=== PATIENT | female | born 1950 | race Caucasian/White ===

== ENCOUNTER → 2018-03-10 | Day surgery (SDC) | payer MEDICARE ==
[~2018-03-10] VITALS: Ht 172.7 cm; Wt 104.3 kg
[~2018-03-10] MED LIST: ESCITALOPRAM OX20 MG PO; HYDROCHLOROTHIA25 MG PO; IBU800 M2 PO; LIPITOR40 MG PO; LISINOPRIL20 MG PO; MOTRIN800 MG PO; MULTIPLE VITAM1 EAC1 PO; OMEPRAZOLE40 MG PO; PREVACID30 MG PO; TOLTERODINE TART4 M1 PO; VITAMIN D31000 UNI1 PO
--- NOTE | ~2018-03-10 | O ---
[place], [place] OPERATIVE NOTE NAME: ALISIA CAMPOS UNIT #: [id number] ROOM: DOCTOR: RIGOBERTO MOISE MD BIRTHDATE: [birth year] DOS: 03/10/2018 PREOPERATIVE DIAGNOSIS: Cataract, right eye. POSTOPERATIVE DIAGNOSIS: Cataract, right eye. OPERATION: Extracapsular cataract extraction by phacoemulsification with posterior chamber intraocular lens implantation, right eye. ANESTHESIA: Monitored standby. OPERATIVE FINDINGS AND PROCEDURE: 2% Xylocaine topical anesthetic gel was applied to the eye in the preop area. The patient was taken to the operating room and prepped and draped in the standard fashion for sterile intraocular surgery. A time out procedure was performed verifying correct patient, correct site and corrects lens with Olga Moise M.D. The operating microscope was swung into position and the lid speculum was inserted. Using a Lexie paracentesis blade, a paracentesis was made through clear cornea. Viscoelastic was used to fill the anterior chamber. Using a metal keratome a 2.4 mm self-sealing clear corneal cataract incision was made temporally at the limbus. Using a pre-bent 25 gauge cystotome needle, a standard continuous curvilinear capsulorrhexis was performed. The anterior capsule was removed with forceps. The lens nucleus was hydrodissected and phacoemulsified in the posterior chamber. Cortical material was removed with the irrigation aspiration hand piece and the posterior capsule was then polished with a curet under irrigation. The posterior chamber and capsular bag were filled with viscoelastic. A posterior chamber intraocular lens manufactured by: [employer], Model #[id number], and 20.5 diopters in strength were then inserted into the posterior chamber and within the capsular bag using the lens cartridge and injector system. Viscoelastic was removed using the irrigation aspiration handpiece. The anterior chamber was filled with balanced salt solution through the paracentesis. Both the paracentesis site and cataract incisions were hydrated with BSS and verified to be water-tight and self-sealing. Cefuroxime 1 mg/0.1 mL was injected into the anterior chamber through the paracentesis site. The incision checked to be water-tight using a Weck-La sponge. The integrity of the cataract wound and ocular tension were checked. Lid speculum and drapes were removed. The patient was transferred from the operating room to the recovery room in satisfactory condition. [place], [place] OPERATIVE NOTE NAME: ALISIA CAMPOS UNIT #: [id number] ROOM: DOCTOR: RIGOBERTO MOISE MD BIRTHDATE: [birth year] RIGOBERTO MOISE MD CM:OPRECORD:OPERATIVE NOTE [id number] RIGOBERTO MOISE MD 03/10/18 1235 interface
[2018-03-10 11:47] VITALS: BP 153/62
[2018-03-10 12:16] VITALS: BP 143/53
[2018-03-10 12:30] VITALS: BP 145/67
[2018-03-10 12:41] VITALS: BP 159/63
== END | disposition home or self-care (01) ==
LOC: SDC 03-04 14:00
DX: H25.11 Age-related nuclear cataract, right eye (principal); K21.9 Gastro-esophageal reflux disease without esophagitis; I10 Essential (primary) hypertension; Z87.891 Personal history of nicotine dependence; Z83.3 Family history of diabetes mellitus; F32.9 Major depressive disorder, single episode, unspecified; Z79.899 Other long term (current) drug therapy

== ENCOUNTER → 2020-09-26 | Outpatient (CLI) | payer MEDICARE | END | disposition home or self-care (01) | LOC: COVID19 11:47 | PROVIDERS: ATTEND Family Medicine | DX: U07.1 COVID-19 (principal) ==

== ENCOUNTER 2023-02-11 20:32 | Emergency (ER) | payer MEDICARE ==
[~2023-02-11] VITALS: Ht 175.2 cm; Wt 77.1 kg
== END 2023-02-11 22:52 | disposition home or self-care (01) ==
LOC: ED 20:32
DX: S61.210A Laceration without foreign body of right index finger without damage to nail, initial encounter (principal); Z79.899 Other long term (current) drug therapy; Z98.890 Other specified postprocedural states; W22.8XXA Striking against or struck by other objects, initial encounter; Y93.89 Activity, other specified; Y92.89 Other specified places as the place of occurrence of the external cause; Y99.8 Other external cause status

== ENCOUNTER → 2023-09-09 | Outpatient (CLI) | payer MEDICARE ==
[~2023-09-09] MED LIST changes: +AMLODIPINE BESY10 MG PO; +DULOXETINE HCL60 MG PO; +HYDROCODONE-AC1 EAC1 PO; +METFORMIN XR500 MG PO; +OXYBUTYNIN10 MG PO
== END | disposition home or self-care (01) ==
LOC: ORTHO 00:59
PROVIDERS: ATTEND Orthopaedic Surgery
DX: S42.341D Displaced spiral fracture of shaft of humerus, right arm, subsequent encounter for fracture with routine healing (principal); X58.XXXD Exposure to other specified factors, subsequent encounter

== ENCOUNTER → 2023-10-07 | Outpatient (CLI) | payer MEDICARE | END | disposition home or self-care (01) | LOC: ORTHO 01:31 | PROVIDERS: ATTEND Orthopaedic Surgery | DX: S42.341D Displaced spiral fracture of shaft of humerus, right arm, subsequent encounter for fracture with routine healing (principal); X58.XXXD Exposure to other specified factors, subsequent encounter ==

== ENCOUNTER → 2023-11-25 | Outpatient (CLI) | payer MEDICARE | END | disposition home or self-care (01) | LOC: ORTHO 02:24 | PROVIDERS: ATTEND Orthopaedic Surgery | DX: S42.341D Displaced spiral fracture of shaft of humerus, right arm, subsequent encounter for fracture with routine healing (principal); X58.XXXD Exposure to other specified factors, subsequent encounter ==

== ENCOUNTER → 2024-01-08 | Outpatient (CLI) | payer MEDICARE | END | disposition home or self-care (01) | LOC: ORTHO 01:32 | PROVIDERS: ATTEND Orthopaedic Surgery | DX: S42.341D Displaced spiral fracture of shaft of humerus, right arm, subsequent encounter for fracture with routine healing (principal); X58.XXXD Exposure to other specified factors, subsequent encounter ==